=== PATIENT | female | born 1985 | race African-American/Black ===

== ENCOUNTER 2020-01-01 18:04 | Emergency (ER) | payer BC ==
[~2020-01-01] VITALS: Ht 167.6 cm; Wt 85.0 kg
[2020-01-01 18:16] VITALS: BP 213/133
== END 2020-01-01 20:22 | disposition left against medical advice (07) ==
LOC: ER 18:04
DX: R00.2 Palpitations (principal); Z53.21 Procedure and treatment not carried out due to patient leaving prior to being seen by health care provider

== ENCOUNTER 2021-05-17 15:15 | Emergency (ER) | payer OTHER ==
[~2021-05-17] VITALS: Ht 167.6 cm; Wt 125.0 kg
[2021-05-17 15:23] VITALS: BP 148/89
== END 2021-05-18 00:43 | disposition left against medical advice (07) ==
LOC: ER 15:15
DX: Z53.21 Procedure and treatment not carried out due to patient leaving prior to being seen by health care provider (principal)

== ENCOUNTER 2024-12-03 15:46 | Inpatient (IN) | payer OTHER ==
[~2024-12-03] VITALS: Ht 162.6 cm; Wt 108.9 kg
[2024-12-03 15:51] VITALS: O2SAT 95
[2024-12-03] MEDS: DIAZEPAM 5 MG/ML 2ML SYR IV ONE ×2 (16:21→17:32)
[2024-12-03] MEDS: FOLIC ACID 1 MG, THIAMINE HCL 100 MG, MVI, ADULT NO.1 10 ML in DEXTROSE 5% WATER 1,000 ML IV ONE (16:35)
[2024-12-03 16:39] LABS: BASOPHILS % 0.6 % (0.0-2.0); EOSINOPHILS % 0.1 % (0.0-5.0); HEMATOCRIT. 43.1 % (36.0-48.0); HEMOGLOBIN. 14.4 g/dL (12.0-16.0); LYMPHOCYTES % 14.5 % (20.0-50.0); MEAN CORPUSCULAR HEMOGLOBIN 31.7 pg (28.0-32.0); MEAN CORPUSCULAR HGB CONC 33.5 g/dL (31.0-37.0); MEAN CORPUSCULAR VOLUME 94.7 fL (81.0-99.0); MEAN PLATELET VOLUME 7.5 fl (7.4-10.4); MONOCYTES % 5.3 % (2.0-8.0); NEUTROPHILS % 79.5 % (40.0-76.0); PLATELET 285 x1000/uL (130-400); RED BLOOD CELL COUNT 4.55 mill/uL (4.2-5.4); RED CELL DISTRIBUTION WIDTH 17.3 % (11.6-14.6); WHITE BLOOD COUNT 8.5 x1000/uL (4.5-11.0)
[2024-12-03 16:45] LABS: CHLORIDE 96 mEq/L (98-107); POTASSIUM 4.1 mEq/L (3.5-5.1); SODIUM 135 mEq/L (136-145)
[2024-12-03 16:46] LABS: CALCIUM 9.1 mg/dL (8.7-10.4); CARBON DIOXIDE 22 mEq/L (21-32)
[2024-12-03 16:50] LABS: HCG SCREEN NEGATIVE
[2024-12-03 16:51] LABS: CREATININE 0.8 mg/dL (0.6-1.0); ETHANOL BLOOD 63 mg/dL (<10); GLUCOSE 86 mg/dL (70-105); INR 1.1; PROTHROMBIN TIME 11.3 sec (9.6-11.0); UREA NITROGEN BLOOD < 5 mg/dL (9-23)
[2024-12-03] MEDS ORDERED: DIAZEPAM 5 MG/ML 2ML SYR IV ONE (18:15)
[2024-12-03 20:00] VITALS: BP 153/97; PULSE 107; RESP 19; TEMP 36.3; TEMP 37.2; O2SAT 97
[2024-12-03] MEDS ORDERED: IPRATROPIUM/ALBUTEROL 0.5-3(2.5)MG/3ML NEB HHN PRN (20:00)
[2024-12-03] MEDS ORDERED: ACETAMINOPHEN 325MG TABLET PO PRN ×2 (20:00)
[2024-12-03] MEDS ORDERED: DOCUSATE SODIUM 100MG CAPSULE PO PRN (20:00)
[2024-12-03] MEDS ORDERED: CLONIDINE 0.1MG TABLET PO PRN (20:00)
[2024-12-03] MEDS ORDERED: LORAZEPAM 2MG/ML UD SYRINGE IV PRN ×2 (20:15)
[2024-12-03] MEDS: LORAZEPAM 2MG/ML UD SYRINGE IV PRN (21:24)
[2024-12-03] MEDS: PANTOPRAZOLE SODIUM 40 MG/VIAL IV SCH (21:24)
[2024-12-03] MEDS: ENOXAPARIN 40MG/0.4ML SYR SUBCUT SCH (21:33)
[2024-12-03] MEDS: CLONIDINE 0.1MG TABLET PO SCH (21:34)
[2024-12-03 21:38] LABS: PHOSPHORUS 1.9 mg/dL (2.5-4.9)
[2024-12-03] MEDS ORDERED: CHLORDIAZEPOXIDE 25MG CAPSULE PO SCH (22:00)
[2024-12-03 22:51] VITALS: BP 153/97; PULSE 107; RESP 19; TEMP 36.4
[2024-12-03] MEDS ORDERED: LISI20TA31 MT (22:56)
[2024-12-03] MEDS ORDERED: GABA-529 PO (22:56)
[2024-12-03] MEDS ORDERED: SERT20OR13 PO (22:57)
[2024-12-04] VITALS: BP 124/78; PULSE 123; RESP 20; TEMP 36.7; O2SAT 98
[2024-12-04] MEDS: CHLORDIAZEPOXIDE 25MG CAPSULE PO SCH (00:06)
[2024-12-04 01:08] LABS: CREATINE KINASE MB FRACTION 0.6 ng/mL (0.5-3.6); TROPONIN I HIGH SENSITIVITY 8 ng/L (3.0-34)
[2024-12-04 01:09] LABS: CREATINE KINASE 285 IU/L (34-145)
[2024-12-04] MEDS: SODIUM PHOSPHATE 30 MMOL in DEXT 5% WATER 490 ML IV NR (02:35)
[2024-12-04 04:00] VITALS: BP 94/59; PULSE 98; RESP 19; TEMP 36.7; O2SAT 98
[2024-12-04] MEDS ORDERED: CHLORDIAZEPOXIDE 25MG CAPSULE PO SCH ×2 (06:00)
[2024-12-04 07:03] LABS: CLARITY URINE CLOUDY (CLEAR); COLOR URINE YELLOW (YELLOW); GLUCOSE URINE NEGATIVE (NEGATIVE); KETONES URINE TRACE (NEGATIVE); LEUKOCYTE ESTERASE URINE 3+ (NEGATIVE); NITRITE URINE POSITIVE (NEGATIVE); OCCULT BLOOD URINE 2+ (NEGATIVE); PROTEIN URINE TRACE (NEGATIVE); SPECIFIC GRAVITY URINE 1.009 (1.005-1.030)
[2024-12-04 07:27] LABS: *AMPHETAMINES SCREEN URINE NEGATIVE (NEGATIVE)
[2024-12-04 07:28] LABS: *BARBITURATES SCREEN URINE NEGATIVE (NEGATIVE); *BENZODIAZEPINES SCREEN URINE PRESUMPTIVE POSITIVE (NEGATIVE); *COCAINE SCREEN URINE NEGATIVE (NEGATIVE); CANNABINOID URINE SCREEN NEGATIVE (NEGATIVE); METHADONE URINE SCREEN NEGATIVE (NEGATIVE); OPIATES URINE SCREEN NEGATIVE (NEGATIVE); PHENCYCLIDINE URINE SCREEN NEGATIVE (NEGATIVE)
[2024-12-04 07:29] LABS: ECSTASY MDMA SCREEN URINE NEGATIVE (NEGATIVE)
[2024-12-04 07:31] LABS: SQUAMOUS EPITHELIAL CELL URINE 1+ /lpf (RARE/1+)
[2024-12-04 07:34] LABS: BACTERIA URINE 4+; RBC URINE 0-2 /hpf (0-2)
[2024-12-04 08:00] VITALS: BP 102/55; PULSE 98; RESP 18; TEMP 36.7; O2SAT 95
[2024-12-04] MEDS: THIAMINE HCL 100MG TABLET PO SCH (09:20)
[2024-12-04] MEDS: MULTIVITAMINS,THER W-MINERALS TABLET PO SCH (09:20)
[2024-12-04] MEDS: FOLIC ACID 1MG TABLET PO SCH (09:20)
[2024-12-04 09:50] LABS: BASOPHILS % 0.3 % (0.0-2.0); EOSINOPHILS % 1.1 % (0.0-5.0); HEMATOCRIT. 44.5 % (36.0-48.0); HEMOGLOBIN. 14.9 g/dL (12.0-16.0); LYMPHOCYTES % 21.8 % (20.0-50.0); MEAN CORPUSCULAR HEMOGLOBIN 31.7 pg (28.0-32.0); MEAN CORPUSCULAR HGB CONC 33.5 g/dL (31.0-37.0); MEAN CORPUSCULAR VOLUME 94.8 fL (81.0-99.0); MEAN PLATELET VOLUME 7.9 fl (7.4-10.4); MONOCYTES % 5.9 % (2.0-8.0); NEUTROPHILS % 70.9 % (40.0-76.0); PLATELET 252 x1000/uL (130-400); RED CELL DISTRIBUTION WIDTH 17.4 % (11.6-14.6); WHITE BLOOD COUNT 6.2 x1000/uL (4.5-11.0)
[2024-12-04 10:22] LABS: CHLORIDE 97 mEq/L (98-107); POTASSIUM 3.6 mEq/L (3.5-5.1); SODIUM 135 mEq/L (136-145)
[2024-12-04 10:23] LABS: CALCIUM 8.9 mg/dL (8.7-10.4); CARBON DIOXIDE 30 mEq/L (21-32); CREATINE KINASE MB FRACTION 0.5 ng/mL (0.5-3.6)
[2024-12-04 10:24] LABS: TROPONIN I HIGH SENSITIVITY 5 ng/L (3.0-34)
[2024-12-04 10:27] LABS: TRIGLYCERIDE 91 mg/dL (0-150)
[2024-12-04 10:28] LABS: CREATININE 0.9 mg/dL (0.6-1.0); GLUCOSE 103 mg/dL (70-105); UREA NITROGEN BLOOD < 5 mg/dL (9-23)
[2024-12-04 10:29] LABS: LDL CHOLESTEROL 90 mg/dL (5-100)
[2024-12-04 10:30] LABS: ALANINE AMINOTRANSFERASE 34 IU/L (10-49); ALBUMIN 4.1 g/dL (3.2-4.8); ASPARTATE AMINOTRANSFERASE 40 IU/L (<34); BILIRUBIN DIRECT 0.7 mg/dL (<=3.0); CHOLESTEROL 184 mg/dL (<200); CREATINE KINASE 248 IU/L (34-145); HDL CHOLESTEROL 73 mg/dL (>65)
[2024-12-04 10:31] LABS: PROTEIN TOTAL 7.2 g/dL (6.0-8.3)
[2024-12-04 12:00] VITALS: BP 110/77; PULSE 103; RESP 19; TEMP 36.7; O2SAT 98
[2024-12-04] MEDS: ONDANSETRON HCL 4MG/2ML INJ IV PRN (12:21)
[2024-12-04 20:00] VITALS: BP 105/72; PULSE 98; RESP 20; TEMP 36; O2SAT 96
[2024-12-04 21:25] LABS: CREATINE KINASE MB FRACTION < 0.5 ng/mL (0.5-3.6)
[2024-12-04 21:26] LABS: CREATINE KINASE 208 IU/L (34-145)
[2024-12-04 21:27] LABS: TROPONIN I HIGH SENSITIVITY < 4 ng/L (3.0-34)
[2024-12-05] VITALS: BP 117/70; PULSE 100; RESP 19; TEMP 35.8; O2SAT 98
[2024-12-05 04:00] VITALS: BP 115/64; PULSE 88; RESP 20; TEMP 36.1; O2SAT 97
[2024-12-05 07:24] LABS: CHLORIDE 99 mEq/L (98-107); POTASSIUM 3.8 mEq/L (3.5-5.1); SODIUM 135 mEq/L (136-145)
[2024-12-05 07:25] LABS: CALCIUM 9.4 mg/dL (8.7-10.4); CARBON DIOXIDE 28 mEq/L (21-32)
[2024-12-05 07:30] LABS: GLUCOSE 85 mg/dL (70-105)
[2024-12-05 07:31] LABS: UREA NITROGEN BLOOD 7 mg/dL (9-23)
[2024-12-05 07:33] LABS: PHOSPHORUS 2.9 mg/dL (2.5-4.9)
[2024-12-05 08:00] VITALS: BP 120/65; PULSE 74; RESP 20; TEMP 36.6; O2SAT 97
[2024-12-05] MEDS: FAMOTIDINE 20MG/2ML VIAL IV SCH (09:09)
[2024-12-05] MEDS ORDERED: THIA100T72 PO (11:13)
[2024-12-05] MEDS ORDERED: CHLO25CA10 PO (11:13)
[2024-12-05] MEDS ORDERED: FOLI-43 PO (11:13)
[2024-12-05] MEDS ORDERED: LORA-249 MT (11:13)
[2024-12-05 12:00] VITALS: BP 94/56; PULSE 101; PULSE 91; RESP 15; RESP 20; TEMP 36.5; TEMP 36.7; O2SAT 96; O2SAT 97
== END 2024-12-05 15:33 | disposition home or self-care (01) | DRG 897 ==
LOC: ER 15:46 → 6WST 18:53 → EDBEDREQTM 18:54 → EDBEDREQ 18:54 → ENRESERV 19:04
PROVIDERS: ADMIT Internal Medicine; ATTEND Internal Medicine
DX: F10.239 Alcohol dependence with withdrawal, unspecified (principal); I10 Essential (primary) hypertension; F41.9 Anxiety disorder, unspecified; Z88.0 Allergy status to penicillin
CPT/HCPCS: 36415; 76700; 80048; 80061; 80076; 80305; 80320; 81003; 82550; 82553; 83605; 83735; 84100; 84145; 84484; 84703; 85025; 93005; 99291; A4606; J1308; J1650; J2060; J2405; J2470; J3411; J3490; J7060; J7070; G0480